=== PATIENT | male | born 1995 | race Caucasian/White ===

== ENCOUNTER 2022-08-29 15:50 | Emergency (ER) | payer SELFPAY ==
[~2022-08-29] VITALS: Ht 175.3 cm; Wt 96.0 kg
[2022-08-29] MEDS ORDERED: MAGNESIUM/ALUMINUM HYDROXIDE/SIMETHICONE 30ML UDC PO STA (15:59)
[2022-08-29] MEDS ORDERED: ONDANSETRON HCL 4MG/2ML INJ IV STA (15:59)
[2022-08-29] MEDS ORDERED: VISCOUS LIDOCAINE 2% 15 ML UDC PO STA (15:59)
[2022-08-29] MEDS ORDERED: FAMOTIDINE 20MG/2ML VIAL IV ONE (16:00)
[2022-08-29] MEDS ORDERED: KETOROLAC 15MG/ML VIAL IV ONE (16:00)
[2022-08-29] MEDS ORDERED: SODIUM CHLORIDE 0.9% 1,000 ML IV ONE (16:00)
[2022-08-29 16:26] VITALS: BP 133/91
[2022-08-29 16:53] LABS: CLARITY URINE CLEAR (CLEAR); COLOR URINE YELLOW (YELLOW); KETONES URINE TRACE (NEGATIVE); LEUKOCYTE ESTERASE URINE NEGATIVE (NEGATIVE); NITRITE URINE NEGATIVE (NEGATIVE); OCCULT BLOOD URINE 3+ (NEGATIVE); PH URINE 6.5 (4.5-8.0); PROTEIN URINE TRACE (NEGATIVE); SPECIFIC GRAVITY URINE 1.024 (1.005-1.030)
[2022-08-29 16:57] LABS: BASOPHILS % 0.3 % (0.0-2.0); HEMATOCRIT. 44.5 % (42.0-52.0); HEMOGLOBIN. 15.5 g/dL (14.0-18.0); LYMPHOCYTES % 15.6 % (20.0-50.0); MEAN CORPUSCULAR HEMOGLOBIN 29.7 pg (28.0-32.0); MEAN CORPUSCULAR VOLUME 85.4 fL (80.0-94.0); MEAN PLATELET VOLUME 8.3 fl (7.4-10.4); MONOCYTES % 5.4 % (2.0-8.0); NEUTROPHILS % 77.7 % (40.0-76.0); PLATELET 252 x1000/uL (130-400); RED BLOOD CELL COUNT 5.21 mill/uL (4.7-6.1); RED CELL DISTRIBUTION WIDTH 13.4 % (11.6-14.6)
[2022-08-29 17:05] LABS: CHLORIDE 108 mEq/L (98-107)
[2022-08-29] MEDS ORDERED: IBUP-2028 MT (17:30)
[2022-08-29] MEDS ORDERED: TAMS-11 MT (17:31)
[2022-08-29] MEDS ORDERED: ACET-2708 MT (17:31)
== END 2022-08-29 17:38 | disposition home or self-care (01) ==
LOC: ER 16:22
DX: N20.0 Calculus of kidney (principal); R11.10 Vomiting, unspecified
CPT/HCPCS: 36415; 71045; 74176; 80053; 81003; 83690; 84484; 85025; 93005; 96374; 96375; 96376; 99285; J1885; J2405; J3490; J7030